=== PATIENT | male | born 1950 | race Two or more races ===

== ENCOUNTER 2017-12-05 09:22 | Outpatient (CLI) | payer OTHER ==
[~2017-12-05 09:22] MED LIST: DICLOFENAC POTA50 MG PO; TIZANIDINE HCL2 MG PO
== END 2017-12-05 10:00 | disposition home or self-care (01) ==
LOC: NUCLEAR 09:22
DX: I87.2 Venous insufficiency (chronic) (peripheral) (principal); E11.51 Type 2 diabetes mellitus with diabetic peripheral angiopathy without gangrene; I73.9 Peripheral vascular disease, unspecified

== ENCOUNTER → 2019-07-27 | Outpatient (CLI) | payer OTHER ==
[~2019-07-27] MED LIST changes: +DICLOFENAC SODI50 MG PO
== END | disposition home or self-care (01) ==
LOC: RAD 10:15
DX: M75.42 Impingement syndrome of left shoulder (principal); M17.12 Unilateral primary osteoarthritis, left knee; M79.642 Pain in left hand

== ENCOUNTER 2019-08-05 10:03 | Outpatient (CLI) | payer OTHER | END 2019-08-05 10:06 | disposition home or self-care (01) | LOC: SONOGRAMA 10:03 → MAMO-SONO 10:45 | DX: M65.352 Trigger finger, left little finger (principal) ==

== ENCOUNTER 2019-10-12 10:54 | Outpatient (CLI) | payer OTHER | END 2019-10-12 10:58 | disposition home or self-care (01) | LOC: RAD 10:54 | DX: I10 Essential (primary) hypertension (principal) ==

== ENCOUNTER 2019-10-12 11:30 | Outpatient (CLI) | payer OTHER | END 2019-10-12 11:35 | disposition home or self-care (01) | LOC: EKG 11:30 | DX: I10 Essential (primary) hypertension (principal) ==

== ENCOUNTER 2019-10-14 11:05 | Outpatient (CLI) | payer OTHER | END 2019-10-14 12:00 | disposition home or self-care (01) | LOC: NUCLEAR 11:05 | DX: I73.9 Peripheral vascular disease, unspecified (principal) ==